=== PATIENT | male | born 1980 | race Caucasian/White ===

== ENCOUNTER → 2017-09-10 | Outpatient (CLI) | payer OTHER | END | disposition home or self-care (01) | LOC: CFH 07:00 | PROVIDERS: ATTEND Physician Assistant Medical | DX: K21.9 Gastro-esophageal reflux disease without esophagitis (principal) | CPT/HCPCS: 76700 ==

== ENCOUNTER → 2017-09-24 | Outpatient (CLI) | payer OTHER | END | disposition home or self-care (01) | LOC: PETCFH 08:10 | PROVIDERS: ATTEND Physician Assistant Medical | DX: K21.0 Gastro-esophageal reflux disease with esophagitis (principal) | CPT/HCPCS: 78227; A9537 ==

== ENCOUNTER 2017-11-05 07:34 | Day surgery (SDC) | payer OTHER ==
[~2017-11-05] VITALS: Ht 160 cm; Wt 72.0 kg
[~2017-11-05 07:34] MED LIST: ASPI-496 PO; BUPIVACAINE/PF 0.5% ONE; CETI10CA PO; CHOL200024 PO; CYCL-259 PO; LANS30CA PO; LEVO50TA5 PO; LIOT5TAB3 PO; ROSU10TA PO; [UNRECOGNIZED DRUG - OTHER] PO
[2017-11-05] MEDS ORDERED: LACTATED RINGERS 1,000 ML IV SCH (07:55)
[2017-11-05 09:37] LABS: HCG UR SG 1.011 (1.003-1.030)
[2017-11-05] MEDS ORDERED: CEFOTETAN 1 GM ONE (10:26)
[2017-11-05] MEDS ORDERED: ROCURONIUM 10MG/ML,5ML ONE (10:34)
[2017-11-05] MEDS ORDERED: DEXAMETHASONE 4 MG/ML, 1ML ONE ×2 (10:34)
[2017-11-05] MEDS ORDERED: PROPOFOL 10 MG/ML, 20ML ONE ×2 (10:34)
[2017-11-05] MEDS ORDERED: ONDANSETRON 2MG/ML, 2ML ONE (10:35)
[2017-11-05] MEDS ORDERED: FENTANYL PF 250 MCG/5ML ONE (10:41)
[2017-11-05] MEDS ORDERED: BUPIVACAINE/PF-EPI 0.5% 1:200K INFIL ONE (10:45)
[2017-11-05] MEDS ORDERED: ONDANSETRON 2MG/ML, 2ML IVPush PRN ×2 (11:30→12:00)
[2017-11-05] MEDS ORDERED: PROMETHAZINE 25 MG/ML, 1ML IM PRN (11:30)
[2017-11-05] MEDS ORDERED: morphine SULFATE 10 MG/ML, 1ML IVPush PRN (11:30)
[2017-11-05] MEDS ORDERED: OXYcodone 5 MG/5 ML ORAL.SOL UDC ONE (11:44)
[2017-11-05] MEDS ORDERED: ACETAMINOPHEN 650 MG/20.3 ML UDC ONE (11:44)
[2017-11-05] MEDS ORDERED: FENTANYL PF 100 MCG/2ML ONE (11:44)
[2017-11-05] MEDS: FENTANYL PF 100 MCG/2ML IV PRN ×2 (11:46→11:54)
[2017-11-05] MEDS ORDERED: OXYcodone 5 MG/5 ML ORAL.SOL UDC PO PRN (12:00)
[2017-11-05] MEDS ORDERED: MEPERIDINE/PF 25MG/0.5ML IVPush PRN (12:00)
[2017-11-05] MEDS ORDERED: ACETAMINOPHEN 325 MG TABLET PO PRN (12:00)
[2017-11-05] MEDS ORDERED: HYDROcodone/APAP 7.5-325MG/15ML UDC PO PRN (12:00)
[2017-11-05] MEDS ORDERED: morphine SULFATE 10 MG/ML, 1ML IV PRN (12:00)
== END 2017-11-05 13:20 ==
LOC: OUT 07:34 → EDSEX 07:34 → OUT 13:20
PROVIDERS: ATTEND Surgery
DX: K81.1 Chronic cholecystitis (principal); Z79.82 Long term (current) use of aspirin; E03.9 Hypothyroidism, unspecified
CPT/HCPCS: 47562; 81025; 88304; J1100; J2405; J2704; J3010; J3490; S0074